=== PATIENT | male | born 2005 | race Caucasian/White ===

== ENCOUNTER 2025-03-06 05:40 | Emergency (ER) | payer BC, MEDICAID ==
[~2025-03-06] VITALS: Ht 180.3 cm; Wt 81.8 kg
[2025-03-06] MEDS: KETOROLAC TROMETHAMINE 60 MG/2 ML VIAL IM ONE (07:22)
[2025-03-06 08:28] VITALS: BP 118/61; PULSE 94; RESP 19; TEMP 98.6; O2SAT 100
== END 2025-03-06 08:30 | disposition home or self-care (01) ==
LOC: EMS 05:42
DX: S09.90XA Unspecified injury of head, initial encounter (principal); W10.9XXA Fall (on) (from) unspecified stairs and steps, initial encounter; Y93.01 Activity, walking, marching and hiking; Y92.89 Other specified places as the place of occurrence of the external cause; Y99.8 Other external cause status
CPT/HCPCS: 99285; 70450; 70486; 96372; J1885